=== PATIENT | female | born 1960 ===

== ENCOUNTER → 2018-06-11 14:52 | Outpatient (REF) | payer OTHER, SELFPAY ==
[2018-06-11 15:26] LABS: Add Manual Diff / Slide Review NO; Basophils Percent Auto 1.3 % (0-2); Eosinophils Percent Auto 2.9 % (2-4); Hematocrit 33.8 % (36-46); Hemoglobin 11.4 g/dL (12.0-16.0); Lymphocytes Percent Auto 30.7 % (25-40); Mean Corpuscular HGB Conc 33.6 % (30-36); Mean Corpuscular Hemoglobin 33.6 PG (26-34); Mean Corpuscular Volume 99.8 fL (80-100); Monocytes Percent Auto 6.6 % (3-14); Neutrophils Absolute Auto 3400 /uL (1500-7000); Neutrophils Percent Auto 58.5 % (50-75); Platelet Count 238 X10^3/uL (150-400); Red Blood Cell Count 3.39 X10^6/uL (4.0-5.2); Red Cell Distribution Width 12.3 % (11.6-14.8); White Blood Cell Count 5.8 X10^3/uL (4.5-11.0)
[2018-06-11 15:30] LABS: Alanine Aminotransferase 38 IU/L (9-52); Albumin 4.6 g/dL (3.5-5.0); Albumin Globulin Ratio 1.8 (1.0-2.8); Alkaline Phosphatase 42 U/L (38-126); Aspartate Aminotransferase 28 IU/L (14-36); Bilirubin Total 0.5 mg/dL (0.2-1.3); Blood Urea Nitrogen 16 mg/dL (7-17); Calcium 9.6 mg/dL (8.4-10.2); Carbon Dioxide 26 mmol/L (22-32); Chloride 103 mmol/L (98-107); Cholesterol 186 mg/dL (140-199); Estimated Glomerular Filt Rate > 60.0 mL/min (>60); Globulin 2.5 g/dL (1.7-4.1); Glucose 92 mg/dL (70-100); HDL Cholesterol 72 mg/dL (40-60); HEMOLYSIS < 15 (0-50); LDL Cholesterol Calculated 91 mg/dL (<100); Potassium 4.7 mmol/L (3.4-5.1); Sodium 139 mmol/L (137-145); Total Protein 7.1 g/dL (6.3-8.2); Triglycerides 113 mg/dL (35-150)
[2018-06-11 15:46] LABS: Free T4, Direct Thyroxine 0.91 ng/dL (0.78-2.19); Vitamin D 25 Hydroxy (D3) 85.5 ng/mL (30.0-100.0)
[2018-06-11 15:47] LABS: Free T3, Triiodothyronine Free 2.93 pg/mL (2.77-5.27)
[2018-06-11 16:00] LABS: Thyroid Stimulating Hormone 0.84 uIU/mL (0.47-4.68)
[2018-06-11 16:18] LABS: Vitamin B12 683 pg/mL (239-931)
[2018-06-15 14:24] LABS: Thyroid Peroxidase Antibodies 1 IU/mL (< 9)
== END ==
LOC: LAB 14:52
PROVIDERS: Visit Provider Family Medicine
DX: E03.9 Hypothyroidism, unspecified (principal); Z13.6 Encounter for screening for cardiovascular disorders; Z13.1 Encounter for screening for diabetes mellitus; Z13.228 Encounter for screening for other metabolic disorders; Z13.820 Encounter for screening for osteoporosis
CPT/HCPCS: 36415; 80053; 80061; 82306; 82607; 84439; 84443; 84481; 85025; 86376